=== PATIENT | male | born 1960 | race Caucasian/White ===

== ENCOUNTER 2018-05-04 15:05 | Inpatient (IN) | payer OTHER ==
[~2018-05-04] VITALS: Ht 190.5 cm; Wt 124.0 kg
--- NOTE | 2018-05-04 15:48 | NUR ---
pt to room from lobby
[2018-05-04] MEDS ORDERED: SODIUM CHLORIDE FLUSH 10ML SYR IVF ONE ×2 (16:00→17:00)
[2018-05-04 16:06] LABS: BASOPHILS # (AUTO) 0.05 x10^3/uL (0-0.1); BASOPHILS % (AUTO) 1 % (0-1); EOSINOPHILS # (AUTO) 0.06 x10^3/uL (0-0.4); EOSINOPHILS % (AUTO) 1 % (1-7); LYMPHOCYTES % (AUTO) 23 % (22-44); MD NO; MEAN CORPUSCULAR HEMOGLOBIN 32.3 pg (27.5-34.5); MEAN CORPUSCULAR HGB CONC 34.2 g/dL (33.2-36.2); MEAN CORPUSCULAR VOLUME 94.4 fL (81-97); MEAN PLATELET VOLUME 7.9 fL (7.4-10.4); MONOCYTES # (AUTO) 0.49 x10^3/uL (0.2-0.8); MONOCYTES % (AUTO) 8 % (2-9); NEUTROPHILS % (AUTO) 68 % (42-75); PLATELET COUNT 182 x10^3/uL (130-400); RED BLOOD COUNT 5.42 x10^6/uL (4.38-5.82); RED CELL DISTRIBUTION WIDTH 13.6 % (9.4-14.8)
[2018-05-04 16:19] LABS: ALANINE AMINOTRANSFERASE 37 U/L (12-78); ALBUMIN 4.3 g/dL (3.4-5.0); ANION GAP 7 mmol/L (5-15); CALCIUM 9.3 mg/dL (8.5-10.1); CHLORIDE 104 mmol/L (98-107); CREATININE 1.25 mg/dL (0.7-1.3)
[2018-05-04 16:23] LABS: ALKALINE PHOSPHATASE 65 U/L (45-117); BILIRUBIN,TOTAL 1.1 mg/dL (0.2-1.0)
[2018-05-04 16:27] LABS: TROPONIN I 0.287 ng/mL (0.000-0.045)
--- NOTE | 2018-05-04 16:30 | NUR ---
preceptor note: EDMD Inez notified pt's troponin level is 0.286; HR sustained in 140's. EDMD at bedside to evaluate pt at this time.
[2018-05-04] MEDS ORDERED: ASPIRIN 81 MG TABLET CHEW ONE (16:56)
[2018-05-04] MEDS ORDERED: DILTIAZEM 5 MG/ML, 5ML ONE (16:57)
[2018-05-04] MEDS ORDERED: DILTIAZEM 125 MG in DEXTROSE 5% 100 ML IV SCH (17:00)
[2018-05-04] MEDS ORDERED: ASPIRIN 81 MG TABLET CHEW PO ONE (17:00)
[2018-05-04] MEDS ORDERED: DILTIAZEM 5 MG/ML, 5ML IV ONE (17:00)
--- NOTE | 2018-05-04 17:00 | NUR ---
MEDICATION ORDERED FROM PHARMACY. Addendum: 05/04/18 at 1710 by YSNELGROVE DILTIAZEM GTT NOT IN OMNICELL; MEDICATION ORDERED FROM PHARMACY.
[2018-05-04] MEDS ORDERED: ATOR20TA37 PO (17:06)
[2018-05-04] MEDS ORDERED: [UNRECOGNIZED DRUG - CODE] PO (17:06)
[2018-05-04] MEDS ORDERED: AMLO5TAB4 PO (17:07)
[2018-05-04] MEDS ORDERED: ASPI-496 PO (17:07)
--- NOTE | 2018-05-04 17:07 | NUR ---
PT MEDICATED PER EMAR. PT TOLERATED WELL. PT AOX4. RESPS EVEN AND UNLABORED.
[2018-05-04] MEDS ORDERED: HEPARIN 25,000 UNITS/500ML PMX 500 ML IV PRN ×2 (17:30→19:00)
[2018-05-04] MEDS ORDERED: HEPARIN 5,000 UNITS/ML, 1ML IV PRN (17:30)
[2018-05-04] MEDS ORDERED: HEPARIN 5,000 UNITS/ML, 1ML IV ONE ×2 (17:30→19:00)
[2018-05-04] MEDS ORDERED: HEPARIN 5,000 UNITS/ML, 1ML ONE (17:35)
[2018-05-04] MEDS ORDERED: HEPARIN 25,000 UNITS/500ML PMX 500 ML ONE (17:35)
--- NOTE | 2018-05-04 17:46 | NUR ---
diltiazem gtt increased to 15mL/hr per MD Staton' order, as pt's HR is sustaining in rate 140s, BP tolerating. MD at bedside to admit pt at this time.
--- NOTE | 2018-05-04 17:47 | NUR ---
pharmacy called to verify heparin gtt rate and bolus dose, dosing approrpriate for pt's height/weight and follows [facility] dosing protocol.
[2018-05-04] MEDS ORDERED: DIGOXIN 0.25 MG/ML, 2ML ONE (18:04)
--- NOTE | 2018-05-04 18:15 | NUR ---
REPORT GIVEN TO KOKO SOLORZANO. HEPARIN GTT INFUSING AT RATE 1000U/HR TO LEFT AC PIV, DILTIAZEM GTT INFUSING AT RATE 15ML/HR TO RIGHT AC PIV. PT GIVEN DIGOXIN DOSE IV PUSH PER EMAR, TOLREATED WELL. PT A&O, RESPS EVEN AND UNLABORED. PT DENIES PAIN. PT AWAITING TRANSPORT TO ROOM 516; HR REMAINS IN 140S, REGULAR WITH NO ECTOPY.
[2018-05-04] MEDS: DILTIAZEM 125 MG in SODIUM CHLORIDE 0.9% 100 ML IV SCH ×2 (18:30→22:26)
[2018-05-04] MEDS ORDERED: hydrALAzine 20 MG/ML, 1ML IVPush PRN (18:30)
[2018-05-04] MEDS ORDERED: TEMAZEPAM 15 MG CAPSULE PO PRN (18:30)
[2018-05-04] MEDS ORDERED: DIGOXIN 0.25 MG/ML, 2ML IVPush ONE (18:30)
[2018-05-04] MEDS ORDERED: ACETAMINOPHEN 325 MG TABLET PO PRN (18:30)
[2018-05-04] MEDS ORDERED: ONDANSETRON 2MG/ML, 2ML IVPush PRN (18:30)
[2018-05-04 18:43] LABS: ANION GAP 9 mmol/L (5-15); CALCIUM 9.2 mg/dL (8.5-10.1); CHLORIDE 105 mmol/L (98-107); CREATININE 1.08 mg/dL (0.7-1.3)
[2018-05-04 18:47] LABS: FREE T4 (FREE THYROXINE) 1.39 ng/dL (0.76-1.46); TROPONIN I 0.272 ng/mL (0.000-0.045)
[2018-05-04 18:53] LABS: THYROID STIMULATING HORMONE 0.774 mIU/L (0.358-3.740)
[2018-05-04 19:06] VITALS: BP 151/86
[2018-05-04] MEDS ORDERED: DILTIAZEM 5 MG/ML, 5ML IVPush ONE (19:30)
[2018-05-04] MEDS: METOPROLOL TARTRATE 25 MG TABLET PO SCH (21:07)
[2018-05-04] MEDS: ATORVASTATIN 20 MG TABLET PO SCH (21:07)
[2018-05-04 22:50] LABS: MICROSCOPIC NOT IND
[2018-05-04 23:02] LABS: CULTURE INDICATED? NO
[2018-05-05] MEDS: HEPARIN 5,000 UNITS/ML, 1ML IV PRN ×2 (01:13→07:51)
[2018-05-05 02:04] VITALS: BP 114/78
[2018-05-05 02:23] LABS: TROPONIN I 0.258 ng/mL (0.000-0.045)
[2018-05-05 02:36] LABS: CHOL/HDL RATIO 3.4
[2018-05-05] MEDS: METOPROLOL TARTRATE 25 MG TABLET PO SCH ×2 (03:27→07:50)
[2018-05-05 06:24] VITALS: BP 119/80
[2018-05-05] MEDS: ASPIRIN 81 MG TABLET EC PO SCH (07:50)
[2018-05-05] MEDS ORDERED: RIVAROXABAN 20 MG TABLET PO SCH ×2 (12:00→17:00)
[2018-05-05] MEDS ORDERED: HEPARIN 25,000 UNITS/500ML PMX 500 ML IV PRN (12:00)
[2018-05-05] MEDS: DILTIAZEM CD 180 MG CAP.ER.24H PO SCH (12:11)
[2018-05-05 13:06] VITALS: BP 131/89
[2018-05-05] MEDS ORDERED: DILTIAZEM 5 MG/ML, 5ML ONE (13:17)
[2018-05-05] MEDS ORDERED: DILTIAZEM 5 MG/ML, 5ML IVPush ONE (13:30)
[2018-05-05] MEDS ORDERED: DILTIAZEM 125 MG in SODIUM CHLORIDE 0.9% 100 ML IV SCH (18:30)
[2018-05-05 18:45] VITALS: BP 115/83
[2018-05-05] MEDS: ATORVASTATIN 20 MG TABLET PO SCH (20:29)
[2018-05-06] VITALS: BP 97/64
[2018-05-06 06:46] VITALS: BP 127/84
[2018-05-06] MEDS: DILTIAZEM CD 180 MG CAP.ER.24H PO SCH (07:57)
[2018-05-06] MEDS: ASPIRIN 81 MG TABLET EC PO SCH (07:58)
[2018-05-06] MEDS ORDERED: DILTIAZEM 60 MG TABLET PO ONE (09:30)
[2018-05-06 12:53] VITALS: BP 130/82
[2018-05-06] MEDS ORDERED: DILT90CA PO (13:25)
[2018-05-06] MEDS ORDERED: RIVA20TA PO (13:25)
[2018-05-06] MEDS ORDERED: DILTIAZEM 90 MG CAP.ER.12H PO SCH (21:00)
== END 2018-05-06 13:58 | disposition home or self-care (01) | DRG 309 ==
LOC: ED 16:43 → EDIP 16:44 → SUATTDRO 16:52 → ED 17:12 → 5SO 18:38
PROVIDERS: ADMIT Internal Medicine; ATTEND Internal Medicine
DX: I48.92 Unspecified atrial flutter (principal); D68.69 Other thrombophilia; E66.9 Obesity, unspecified; E78.5 Hyperlipidemia, unspecified; I36.1 Nonrheumatic tricuspid (valve) insufficiency; G47.33 Obstructive sleep apnea (adult) (pediatric); I10 Essential (primary) hypertension; Z87.891 Personal history of nicotine dependence; Z90.49 Acquired absence of other specified parts of digestive tract; Z68.34 Body mass index [BMI] 34.0-34.9, adult
CPT/HCPCS: 36415; 71046; 80048; 80053; 80061; 81003; 83735; 84100; 84439; 84443; 84484; 85025; 85520; 93005; 93306; 96374; 96375; 99291; G0378; J1644; J1160

== ENCOUNTER 2018-06-07 11:53 | Day surgery (SDC) | payer OTHER ==
[~2018-06-07] VITALS: Ht 190.5 cm; Wt 123.6 kg
[~2018-06-07 11:53] MED LIST: AMLO5TAB4 PO; ASPI-496 PO; ATOR20TA37 PO; DILT90CA PO; PROPOFOL 10 MG/ML, 20ML ONE; RIVA20TA PO; [UNRECOGNIZED DRUG - CODE] PO
[2018-06-07 13:02] VITALS: BP 138/89
[2018-06-07 13:16] LABS: INTERNATIONAL NORMALIZED RATIO 1.27 (0.93-1.1); PROTHROMBIN TIME 13.2 Seconds (9.6-11.5)
[2018-06-07 13:19] LABS: ANION GAP 4 mmol/L (5-15); CALCIUM 8.7 mg/dL (8.5-10.1); CHLORIDE 107 mmol/L (98-107); CREATININE 1.13 mg/dL (0.7-1.3)
[2018-06-07] MEDS ORDERED: DILT240C PO (14:13)
== END 2018-06-07 15:01 | disposition home or self-care (01) ==
LOC: CACL 11:53
PROVIDERS: ATTEND Internal Medicine Cardiovascular Disease
DX: I48.92 Unspecified atrial flutter (principal); I48.91 Unspecified atrial fibrillation; I10 Essential (primary) hypertension; E78.2 Mixed hyperlipidemia; I08.1 Rheumatic disorders of both mitral and tricuspid valves; Z79.899 Other long term (current) drug therapy; Z79.82 Long term (current) use of aspirin; Z72.89 Other problems related to lifestyle
CPT/HCPCS: 36415; 80048; 85610; 92960; J2704

== ENCOUNTER 2019-02-28 08:06 | Outpatient (CLI) | payer OTHER ==
[~2019-02-28 08:06] MED LIST changes: +DILT240C81 PO; -PROPOFOL 10 MG/ML, 20ML ONE
[2019-02-28] MEDS ORDERED: REGADENOSON 0.4 MG/5 ML SYRINGE ONE (12:19)
== END 2019-02-28 23:59 | disposition home or self-care (01) ==
LOC: CFH 08:06
PROVIDERS: ATTEND Internal Medicine Cardiovascular Disease
DX: I25.5 Ischemic cardiomyopathy (principal); I10 Essential (primary) hypertension; I34.0 Nonrheumatic mitral (valve) insufficiency; I48.91 Unspecified atrial fibrillation
CPT/HCPCS: 78452; 93017; A9502; J2785

== ENCOUNTER 2019-07-04 10:54 | Day surgery (SDC) | payer OTHER ==
[~2019-07-04] VITALS: Ht 190.5 cm; Wt 127.0 kg
[2019-07-04] MEDS ORDERED: PROP325C2 PO (12:00)
[2019-07-04] MEDS ORDERED: METO25TA35 PO (12:00)
[2019-07-04] MEDS ORDERED: RIVA20TA PO (12:00)
[2019-07-04] MEDS ORDERED: LISI-465 PO (12:00)
[2019-07-04 12:24] LABS: ANION GAP 7 mmol/L (5-15); CALCIUM 9.2 mg/dL (8.5-10.1); CHLORIDE 105 mmol/L (98-107)
[2019-07-04 12:25] LABS: CREATININE 1.19 mg/dL (0.7-1.3)
== END 2019-07-04 12:58 | disposition home or self-care (01) ==
LOC: CACL 10:54
PROVIDERS: ATTEND Internal Medicine Cardiovascular Disease
DX: I48.20 Chronic atrial fibrillation, unspecified (principal); I10 Essential (primary) hypertension; Z79.01 Long term (current) use of anticoagulants; Z79.899 Other long term (current) drug therapy
CPT/HCPCS: 36415; 80048; 92960

== ENCOUNTER 2020-01-30 06:08 | Observation (INO) | payer OTHER ==
[~2020-01-30] VITALS: Ht 190.5 cm; Wt 120.9 kg
[~2020-01-30 06:08] MED LIST changes: +LISI-465 PO; +METO25TA35 PO; +PROP325C2 PO
[2020-01-30] MEDS ORDERED: METO25TA35 PO (06:29)
[2020-01-30] MEDS ORDERED: SODIUM CHLORIDE 0.9% 1,000 ML IV SCH (06:30)
[2020-01-30 06:32] VITALS: BP 155/87
[2020-01-30 07:04] LABS: BASOPHILS % (AUTO) 2 % (0-1); EOSINOPHILS % (AUTO) 1 % (1-7); LYMPHOCYTES % (AUTO) 25 % (22-44); MEAN CORPUSCULAR HEMOGLOBIN 33.5 pg (27.5-34.5); MEAN CORPUSCULAR HGB CONC 34.5 g/dL (33.2-36.2); MEAN PLATELET VOLUME 8.1 fL (7.4-10.4); MONOCYTES % (AUTO) 12 % (2-9); NEUTROPHILS % (AUTO) 60 % (42-75); PLATELET COUNT 158 x10^3/uL (130-400); RED BLOOD COUNT 4.82 x10^6/uL (4.38-5.82); RED CELL DISTRIBUTION WIDTH 13.8 % (9.4-14.8)
[2020-01-30 07:11] LABS: ANION GAP 4 mmol/L (5-15); CALCIUM 8.8 mg/dL (8.5-10.1); CHLORIDE 108 mmol/L (98-107); CREATININE 1.07 mg/dL (0.7-1.3)
[2020-01-30 07:18] LABS: MD NO
[2020-01-30 07:35] LABS: INTERNATIONAL NORMALIZED RATIO 1.08 (0.93-1.1); PROTHROMBIN TIME 11.4 Seconds (9.6-11.5)
[2020-01-30] MEDS ORDERED: PROPOFOL 50 ML ONE (07:41)
[2020-01-30] MEDS ORDERED: MIDAZOLAM 1 MG/ML, 2ML ONE (07:42)
[2020-01-30] MEDS ORDERED: FENTANYL PF 250 MCG/5ML ONE (07:42)
[2020-01-30] MEDS ORDERED: LIDOCAINE 2%, 20ML ONE (07:52)
[2020-01-30] MEDS ORDERED: DEXAMETHASONE 4 MG/ML, 1ML ONE (09:33)
[2020-01-30] MEDS ORDERED: ONDANSETRON 2MG/ML, 2ML ONE (09:33)
[2020-01-30] MEDS ORDERED: HEPARIN 1,000 UNITS/ML, 10ML ONE ×3 (09:33)
[2020-01-30] MEDS ORDERED: SUCCINYLCHOLINE 20 MG/ML, 10ML ONE (09:33)
[2020-01-30] MEDS ORDERED: ROCURONIUM 10MG/ML,5ML ONE (09:33)
[2020-01-30] MEDS ORDERED: APIXABAN 5 MG TABLET ONE (11:17)
[2020-01-30] MEDS ORDERED: OXYcodone 5 MG/5 ML ORAL.SOL UDC PO PRN (11:30)
[2020-01-30] MEDS ORDERED: morphine SULFATE 10 MG/ML, 1ML IVPush PRN (11:30)
[2020-01-30] MEDS ORDERED: EPHEDRINE 50 MG/ML, 1ML IM PRN (11:30)
[2020-01-30] MEDS ORDERED: DIAZEPAM 5 MG/ML, 2ML IVPush PRN (11:30)
[2020-01-30] MEDS ORDERED: EPHEDRINE 50 MG/ML, 1ML IVPush PRN (11:30)
[2020-01-30] MEDS ORDERED: ACETAMINOPHEN 325 MG TABLET PO PRN (11:30)
[2020-01-30] MEDS ORDERED: METOPROLOL 1 MG/ML, 5ML IV PRN (11:30)
[2020-01-30] MEDS ORDERED: MEPERIDINE/PF 25MG/0.5ML IVPush PRN (11:30)
[2020-01-30] MEDS ORDERED: FENTANYL PF 100 MCG/2ML IV PRN (11:30)
[2020-01-30] MEDS ORDERED: PROMETHAZINE 25 MG/ML, 1ML IVPush PRN (11:30)
[2020-01-30] MEDS ORDERED: ONDANSETRON 2MG/ML, 2ML IVPush PRN (11:30)
[2020-01-30] MEDS ORDERED: DIPHENHYDRAMINE 50 MG/ML, 1ML IVPush PRN (11:30)
[2020-01-30] MEDS: APIXABAN 5 MG TABLET PO SCH ×2 (12:05→20:44)
[2020-01-30 14:00] VITALS: BP 147/83
[2020-01-30 20:37] VITALS: BP 165/83
[2020-01-30] MEDS: METOPROLOL TARTRATE 25 MG TAB PO SCH (20:45)
[2020-01-30] MEDS ORDERED: ATORVASTATIN 20 MG TABLET PO SCH (21:00)
[2020-01-31 00:34] VITALS: BP 160/87
[2020-01-31 07:28] VITALS: BP 136/88
[2020-01-31] MEDS: APIXABAN 5 MG TABLET PO SCH (08:52)
[2020-01-31] MEDS: METOPROLOL TARTRATE 25 MG TAB PO SCH (08:52)
[2020-01-31] MEDS ORDERED: LISINOPRIL 10 MG TABLET PO SCH (09:00)
[2020-01-31] MEDS ORDERED: COLC0.6C3 PO (10:20)
[2020-01-31] MEDS ORDERED: APIX5TAB PO (10:20)
== END 2020-01-31 12:11 | disposition home or self-care (01) ==
LOC: CACL 06:08 → ORIP 11:07 → 5SO 13:11 → DCLOUNGE 01-31 12:02
PROVIDERS: ADMIT Internal Medicine Cardiovascular Disease; ATTEND Internal Medicine Cardiovascular Disease
DX: I48.91 Unspecified atrial fibrillation (principal); Z20.828 Contact with and (suspected) exposure to other viral communicable diseases; I48.92 Unspecified atrial flutter; I10 Essential (primary) hypertension; F10.10 Alcohol abuse, uncomplicated; Z79.899 Other long term (current) drug therapy
CPT/HCPCS: 36415; 80048; 85025; 85347; 85610; 87635; 93306; 93613; 93655; 93656; 93657; 93662; C1730; C1732; C1759; C1766; C1769; C1893; C1894; G0378; J0330; J1100; J1644; J2250; J2405; J2704; J3010; J3490